=== PATIENT | female | born 1950 ===

== ENCOUNTER 2018-05-21 07:07 | Day surgery (SDC) | payer OTHER ==
[2018-05-21] MEDS ORDERED: Lactated Ringer's 500 ML IV ONE (07:53)
[2018-05-21] MEDS ORDERED: Propofol 10 mg/ml Inj (20 ML) ONE (07:59)
[2018-05-21 08:05] VITALS: RESP 18
[2018-05-21 09:42] VITALS: PULSE 58; TEMP 98; O2SAT 94
[2018-05-21 09:43] VITALS: BP 99/48
== END 2018-05-21 11:53 | disposition home or self-care (01) ==
LOC: H.ENDO 07:07
PROVIDERS: ATTEND Internal Medicine Gastroenterology
DX: Z12.11 Encounter for screening for malignant neoplasm of colon (principal); E11.9 Type 2 diabetes mellitus without complications; I10 Essential (primary) hypertension; K64.8 Other hemorrhoids; K57.30 Diverticulosis of large intestine without perforation or abscess without bleeding; K31.89 Other diseases of stomach and duodenum
CPT/HCPCS: 43239; 45378; 88305; J2001; J2704; J7120